=== PATIENT | male | born 1980 | race Caucasian/White ===

== ENCOUNTER 2019-04-16 14:21 | Inpatient (IN) | payer MEDICAID ==
[~2019-04-16] VITALS: Ht 177.8 cm; Wt 85.4 kg
[2019-04-16] MEDS ORDERED: INFLUENZA VIRUS VACCINE QVS 2019-20 (3YR+)/PF 60 MCG/0.5 ML SYRINGE IM ONE (17:00)
[2019-04-16] MEDS ORDERED: PNEUMOCOCCAL VACCINE POLYVALENT 0.5 ML VIAL [PPSV23] IM ONE (17:00)
[2019-04-16] MEDS ORDERED: MAG HYDROX/AL HYDROX/SIMETH ES 30 ML SUSPENSION UDCUP PO PRN (18:00)
[2019-04-16] MEDS ORDERED: LOPERAMIDE HCL 2 MG CAPSULE PO PRN (18:00)
[2019-04-16] MEDS ORDERED: ALBUTEROL SULFATE HFA 90 MCG/PUFF 8 GM INHALER IH PRN (18:00)
[2019-04-16] MEDS ORDERED: IBUPROFEN 400 MG TABLET PO PRN (18:00)
[2019-04-16] MEDS ORDERED: CloNIDine HCL 0.1 MG TABLET PO PRN (18:00)
[2019-04-16] MEDS ORDERED: ONDANSETRON HCL 4 MG TABLET PO PRN (18:00)
[2019-04-16] MEDS ORDERED: GuaiFENesin/D-METHORPHAN [SUGAR-FREE] 200-20MG/10 ML SYRUP UDCUP PO PRN (18:00)
[2019-04-16] MEDS ORDERED: NICOTINE 14 MG/24 HOUR PATCH TD PRN (18:00)
[2019-04-16] MEDS ORDERED: PETROLATUM,WHITE 28 GM JELLY TP PRN (18:00)
[2019-04-16] MEDS ORDERED: MAGNESIUM HYDROXIDE SUSPENSION 30 ML UDCUP PO PRN (18:00)
[2019-04-16] MEDS ORDERED: DOCUSATE SODIUM 100 MG CAPSULE PO PRN (18:00)
[2019-04-16] MEDS ORDERED: ACETAMINOPHEN 325 MG TABLET PO PRN (18:00)
[2019-04-16] MEDS: LORazepam 2 MG TABLET PO PRN (18:10)
[2019-04-16 21:32] VITALS: BP 140/75
[2019-04-17] MEDS: ZOLPIDEM TARTRATE 10 MG TABLET PO PRN (00:04)
[2019-04-17 00:10] VITALS: BP 124/73
[2019-04-17 08:11] LABS: APPEARANCE,URINE CLOUDY (CLEAR); BILIRUBIN,URINE NEGATIVE (NEGATIVE); GLUCOSE, URINE (UA) NEGATIVE (NEGATIVE); KETONES,URINE NEGATIVE (NEGATIVE); LEUKOCYTE ESTERASE ,URINE NEGATIVE (NEGATIVE); NITRATE,URINE NEGATIVE (NEGATIVE); OCCULT BLOOD,URINE NEGATIVE (NEGATIVE); PROTEIN,URINE NEGATIVE (NEGATIVE)
[2019-04-17 08:14] LABS: HEMOGLOBIN A1C 5.4 % (4.5-6.2)
[2019-04-17 08:16] LABS: AMPHET/METH SCREEN,URINE NEGATIVE (NEGATIVE); BARBITURATE SCREEN, URINE NEGATIVE (NEGATIVE); BENZODIAZEPINES SCREEN,URINE NEGATIVE (NEGATIVE); CANNABINOID SCREEN,URINE NEGATIVE (NEGATIVE); COCAINE SCREEN,URINE NEGATIVE (NEGATIVE); METHADONE SCREEN, URINE NEGATIVE (NEGATIVE); OPIATE SCREEN,URINE NEGATIVE (NEGATIVE)
[2019-04-17 08:28] VITALS: BP 124/70
[2019-04-17 08:30] LABS: BASOPHILS % (AUTO) 0.7 % (0.0-2.0); EOSINOPHILS % (AUTO) 2.5 % (1.0-6.0); HEMATOCRIT 43.4 % (41-53); HEMOGLOBIN 14.7 g/dL (13.5-17.5); LYMPHOCYTES # (AUTO) 1.9 K/uL (1.0-4.8); MEAN CORPUSCULAR HEMOGLOBIN 31.4 pg (26.0-34.0); MEAN CORPUSCULAR HGB CONC 33.9 G/dL (31.0-37.0); MEAN CORPUSCULAR VOLUME 93 fL (80-100); MONOCYTES # (AUTO) 0.6 K/uL (0.1-1.0); MONOCYTES % (AUTO) 10.1 % (2.0-9.0); NEUTROPHILS # (AUTO) 3.1 K/uL (1.8-7.7); NEUTROPHILS % (AUTO) 53.7 % (40.0-70.0); PLATELET COUNT (AUTO) 267 K/uL (150-450); RED BLOOD CELL COUNT(AUTO) 4.69 MIL/uL (4.50-5.90); RED CELL DISTRIBUTION WIDTH 13.5 % (11.5-14.5)
[2019-04-17 08:33] LABS: PHENCYCLIDINE SCREEN,URINE NEGATIVE (NEGATIVE)
[2019-04-17 08:34] LABS: ALANINE AMINOTRANSFERASE 25 U/L (12-78); ALBUMIN 4.1 g/dL (3.4-5.0); ALKALINE PHOSPHATASE 67 U/L (46-116); ANION GAP 6 mmol/L (8-16); ASPARTATE AMINOTRANSFERASE 14 U/L (15-37); BILIRUBIN,TOTAL 0.4 mg/dL (0.1-1.0); CALCIUM, TOTAL 8.6 mg/dL (8.8-10.5); CARBON DIOXIDE 30 mmol/L (22-29); CHLORIDE 102 mmol/L (98-107); CHOL/HDL RATIO 4.7 (4.2-7.3); CHOLESTEROL 218 mg/dL (131-200); CREATININE 0.79 mg/dL (0.60-1.30); GLOMERULAR FILTR. RATE CALC > 60 mL/min (>60); GLUCOSE,RANDOM 90 mg/dL (70-110); HDL CHOLESTEROL 46 mg/dL (40-60); LDL CHOL (CALC.) 133 mg/dL (0-130); POTASSIUM 3.8 mmol/L (3.5-5.1); SODIUM SERUM 138 mmol/L (136-145); TOTAL PROTEIN, SERUM 7.5 g/dL (6.4-8.2); TRIGLYCERIDES 197 mg/dL (15-150); UREA NITROGEN, BLOOD 14 mg/dL (7-18)
[2019-04-17 08:40] LABS: BACTERIA,URINE None Seen /HPF (None Seen); RBC,URINE None Seen /HPF (0-2); WBC,URINE None Seen /HPF (0-5)
[2019-04-17 08:41] LABS: AMORPHOUS SEDIMENT,UR Moderate /LPF (None Seen); SQUAMOUS EPITHELIAL CELL,UR Few /LPF (None Seen)
[2019-04-17] MEDS: LORazepam 2 MG TABLET PO PRN ×2 (10:05→20:12)
[2019-04-17] MEDS ORDERED: ESCITALOPRAM OXALATE 20 MG TABLET PO ONE (12:30)
[2019-04-17] MEDS: BusPIRone HCL 15 MG TABLET PO SCH ×2 (13:24→17:48)
[2019-04-17] MEDS: GABAPENTIN 400 MG CAPSULE PO SCH ×2 (13:24→17:48)
[2019-04-17 16:15] VITALS: BP 145/80
[2019-04-17 20:05] VITALS: BP 129/91
[2019-04-17] MEDS: QUEtiapine FUMARATE 200 MG TABLET PO SCH (20:12)
[2019-04-17] MEDS: PRAZOSIN HCL 1 MG CAPSULE PO SCH (20:27)
[2019-04-18 02:49] VITALS: BP 123/78
[2019-04-18] MEDS: ZOLPIDEM TARTRATE 10 MG TABLET PO PRN (02:51)
[2019-04-18] MEDS: BusPIRone HCL 15 MG TABLET PO SCH ×3 (08:15→16:11)
[2019-04-18] MEDS: ESCITALOPRAM OXALATE 20 MG TABLET PO SCH (08:15)
[2019-04-18 08:16] VITALS: BP 126/74
[2019-04-18] MEDS: GABAPENTIN 400 MG CAPSULE PO SCH ×3 (08:16→16:10)
[2019-04-18] MEDS: HALOPERIDOL 5 MG TABLET PO PRN (08:50)
[2019-04-18 16:11] VITALS: BP 125/71
[2019-04-18] MEDS: LORazepam 2 MG TABLET PO PRN (20:07)
[2019-04-18] MEDS: PRAZOSIN HCL 1 MG CAPSULE PO SCH (20:18)
[2019-04-18] MEDS: TraZODone HCL 100 MG TABLET PO SCH (20:19)
[2019-04-18] MEDS: QUEtiapine FUMARATE 200 MG TABLET PO SCH (20:19)
[2019-04-19 01:08] VITALS: BP 117/70
[2019-04-19] MEDS: HALOPERIDOL 5 MG TABLET PO PRN (04:55)
[2019-04-19 08:18] VITALS: BP 108/75
[2019-04-19] MEDS: ESCITALOPRAM OXALATE 20 MG TABLET PO SCH (08:33)
[2019-04-19] MEDS: BusPIRone HCL 15 MG TABLET PO SCH ×3 (08:33→16:14)
[2019-04-19] MEDS: GABAPENTIN 400 MG CAPSULE PO SCH ×3 (08:33→16:14)
[2019-04-19 16:05] VITALS: BP 124/78
[2019-04-19] MEDS: LORazepam 2 MG TABLET PO PRN (16:14)
[2019-04-19] MEDS: QUEtiapine FUMARATE 200 MG TABLET PO SCH (20:12)
[2019-04-19] MEDS: PRAZOSIN HCL 1 MG CAPSULE PO SCH (20:12)
[2019-04-19] MEDS: TraZODone HCL 100 MG TABLET PO SCH (20:13)
[2019-04-20 00:07] VITALS: BP 100/60
[2019-04-20] MEDS: ESCITALOPRAM OXALATE 20 MG TABLET PO SCH (08:20)
[2019-04-20] MEDS: GABAPENTIN 400 MG CAPSULE PO SCH ×3 (08:20→16:05)
[2019-04-20] MEDS: BusPIRone HCL 15 MG TABLET PO SCH ×3 (08:20→16:05)
[2019-04-20 08:28] VITALS: BP 121/54
[2019-04-20] MEDS: HALOPERIDOL 5 MG TABLET PO PRN (09:29)
[2019-04-20] MEDS: LORazepam 2 MG TABLET PO PRN (15:57)
[2019-04-20 16:21] VITALS: BP 105/65
[2019-04-20] MEDS: QUEtiapine FUMARATE 200 MG TABLET PO SCH (20:22)
[2019-04-20] MEDS: PRAZOSIN HCL 1 MG CAPSULE PO SCH (20:23)
[2019-04-20] MEDS: TraZODone HCL 100 MG TABLET PO SCH (20:23)
[2019-04-21 00:14] VITALS: BP 103/63
[2019-04-21 08:17] VITALS: BP 122/78
[2019-04-21] MEDS: BusPIRone HCL 15 MG TABLET PO SCH ×3 (08:30→16:21)
[2019-04-21] MEDS: HALOPERIDOL 5 MG TABLET PO PRN (08:30)
[2019-04-21] MEDS: ESCITALOPRAM OXALATE 20 MG TABLET PO SCH (08:31)
[2019-04-21] MEDS: GABAPENTIN 400 MG CAPSULE PO SCH ×3 (08:31→16:21)
[2019-04-21] MEDS ORDERED: OMEGA-3/DHA/EPA/FISH OIL 1,000 MG CAPSULE PO SCH (09:15)
[2019-04-21] MEDS ORDERED: MULTIVITAMINS WITH MINERALS, THERAPEUTIC TABLET PO SCH (09:15)
[2019-04-21] MEDS: LORazepam 2 MG TABLET PO PRN (14:38)
[2019-04-21] MEDS ORDERED: BUSP15 PO (15:17)
[2019-04-21] MEDS ORDERED: PRAZ1CAP2 PO (15:18)
[2019-04-21] MEDS ORDERED: TRAZ-220 PO (15:18)
[2019-04-21] MEDS ORDERED: GABA-533 PO (15:18)
[2019-04-21] MEDS ORDERED: ESCI20TA PO (15:19)
[2019-04-21] MEDS ORDERED: QUET200T PO (15:19)
[2019-04-21] MEDS ORDERED: OMEG-135 PO (15:20)
[2019-04-21] MEDS ORDERED: MULT-248 PO (15:21)
== END 2019-04-21 20:36 | disposition home or self-care (01) | DRG 750 ==
LOC: B2S 16:34
PROVIDERS: ADMIT Psychiatry & Neurology Psychiatry; ATTEND Psychiatry & Neurology Psychiatry
DX: F25.9 Schizoaffective disorder, unspecified (principal); Z59.0 Homelessness; E78.5 Hyperlipidemia, unspecified; F10.10 Alcohol abuse, uncomplicated; F31.9 Bipolar disorder, unspecified; F43.10 Post-traumatic stress disorder, unspecified; I10 Essential (primary) hypertension; Y90.9 Presence of alcohol in blood, level not specified
CPT/HCPCS: 80307; 83036; 86592; 87081; 90686; 90732

== ENCOUNTER 2020-08-09 19:30 | Emergency (ER) | payer MEDICAID ==
[~2020-08-09] VITALS: Ht 177.8 cm; Wt 92.7 kg
[~2020-08-09 19:30] MED LIST: BUSP15 PO; ESCI20TA87 PO; GABA-1201 PO; MULT-248 PO; OMEG-135 PO; PRAZ1CAP2 PO; QUET200T PO; TRAZ-257 PO
[2020-08-09] MEDS ORDERED: ACETAMINOPHEN 500 MG TABLET PO ONE (20:15)
[2020-08-09 21:35] VITALS: BP 132/82
== END 2020-08-09 22:21 | disposition home or self-care (01) ==
LOC: EMS 19:32
DX: S09.90XA Unspecified injury of head, initial encounter (principal); F12.90 Cannabis use, unspecified, uncomplicated; Y08.89XA Assault by other specified means, initial encounter; Y93.89 Activity, other specified; Y92.89 Other specified places as the place of occurrence of the external cause; Y99.8 Other external cause status
CPT/HCPCS: 70450; 99284